=== PATIENT | female | born 1950 | race African-American/Black ===

== ENCOUNTER 2019-12-04 01:55 | Emergency (ER) | payer MEDICARE, MEDICAID ==
[~2019-12-04] VITALS: Ht 162.6 cm; Wt 50.0 kg
[2019-12-04 02:15] VITALS: BP 158/95
[2019-12-04] MEDS ORDERED: MORPHINE SULFATE 4 MG/ML CPJ (NOT FOR IM USE) IV ONE (02:45)
[2019-12-04] MEDS ORDERED: ONDANSETRON HCL 4MG/2ML INJ IV ONE (02:45)
[2019-12-04] MEDS ORDERED: FUROSEMIDE 40MG/4ML VIAL ONE (03:07)
[2019-12-04] MEDS ORDERED: NITROGLYCERIN 50MG PREMIX 250 ML IV ONE (03:08)
[2019-12-04 03:15] LABS: BASOPHILS % 0.5 % (0.0-2.0); HEMATOCRIT. 41.4 % (36.0-48.0); HEMOGLOBIN. 13.3 g/dL (12.0-16.0); LYMPHOCYTES % 11.1 % (20.0-50.0); MEAN CORPUSCULAR HEMOGLOBIN 29.3 pg (28.0-32.0); MONOCYTES % 2.7 % (2.0-8.0); NEUTROPHILS % 85.7 % (40.0-76.0); RED BLOOD CELL COUNT 4.55 mill/uL (4.2-5.4); RED CELL DISTRIBUTION WIDTH 16.2 % (11.6-14.6)
[2019-12-04 03:19] LABS: BG BASE EXCESS -8.3 mmol/L (-2.0-2.0); BG CARBOXYHEMOGLOBIN 0.5 % (0.5-1.5); BG DEOXYHEMOGLOBIN 26.7 % (0.0-5.0); BG FRACTION INSPIRED OXYGEN 44; BG HCO3 ACT 16.2 mmol/L (22.0-26.0); BG OXYGEN SATURATION 73.2 % (92.0-98.5); BG OXYHEMOGLOBIN 72.8 % (94.0-97.0); BG PCO2 30.5 mmHg (35.0-45.0); BG PH 7.344 (7.350-7.450); BG PO2 40.9 mmHg (75.0-100.0); BG SAMPLE SITE LEFT BRACHIAL; BG VENT MODE NASAL CANNULA
[2019-12-04 03:20] LABS: CHLORIDE 104 mEq/L (98-107)
[2019-12-04 03:24] LABS: ETHANOL BLOOD < 10 mg/dL
[2019-12-04 03:26] LABS: C REACTIVE PROTEIN QUANT 0.5 mg/L (0.0-3.0)
[2019-12-04] MEDS ORDERED: SUCCINYLCHOLINE CHLORIDE 200MG/10ML IV ONE (03:27)
[2019-12-04 03:28] LABS: CREATINE KINASE 266 IU/L (26-192)
[2019-12-04 03:31] LABS: D-DIMER 6.15 mg/L FEU (<0.50); PROTHROMBIN TIME 10.5 sec (9.6-11.0)
[2019-12-04 03:37] LABS: PARTIAL THROMBOPLASTIN TIME < 21.0 sec (23.4-31.0)
[2019-12-04] MEDS ORDERED: EPINEPHRINE 0.1MG/ML (1:10,000) 10ML SYR ONE (03:38)
== END 2019-12-04 06:11 | disposition expired ==
LOC: ER 01:55
DX: R65.21 Severe sepsis with septic shock (principal); I21.4 Non-ST elevation (NSTEMI) myocardial infarction; R91.8 Other nonspecific abnormal finding of lung field; E87.2 Acidosis; I11.0 Hypertensive heart disease with heart failure; I50.9 Heart failure, unspecified; Z20.828 Contact with and (suspected) exposure to other viral communicable diseases
CPT/HCPCS: 31500; 36415; 36600; 71045; 80053; 80320; 82375; 82550; 82728; 82805; 82962; 83605; 83615; 83690; 83880; 84145; 84484; 85025; 85379; 85610; 85730; 86140; 86850; 86900; 86901; 87040; 87635; 87804; 92950; 93005; 96374; 99291; J0330; J1940; J2270; J2405; J3490; G0480